=== PATIENT | male | born 1940 | race Two or more races ===

== ENCOUNTER 2024-08-08 14:32 | Outpatient (REF) | payer MEDICARE, OTHER, SELFPAY ==
[2024-08-08 16:28] LABS: Vitamin B12 705 pg/mL (200-900)
--- OUTSIDE RECORDS SUMMARY | 2024-08-08 18:11 | XMS_ITS | Encounter Summary ---
Author Organization [facility] [place] [address] Care Team Providers Care Assembly Line Supervisor Name Role Phone Mick Martins MD Primary Care Provider [phone] Reason for Visit * Reason Onset Date Comments Medicare Annual Wellness Visit Subsequent 2024 AWV DUE 2024 Encounter Details Date Type Department Care Team (Late st Contact Info) Description 07/27/2024 Telephone Foundry Supervisor - [facility] [address] [place] [phone] Maryann Alatorre MA Medicare Annual Wellness Visit Subsequent (AWV DUE 2024) Social History Tobacco Use Types Packs/Day Years Used Date Smoking Tobacco: Former Cigarettes Q uit: 06/13/1986 Smokeless Tobacco: Never Alcohol Use Standard Drinks/Week Comments Yes 0 (1 standard drink = 0.6 oz pur e alcohol) Sex and Gender Information Value Date Recorded Sex Assigned at Not on file Legal Sex Male 1:28 PM EST Gender Identity Not on file Sexual Orientation Not on file documented as of this encounter Progress Notes * Maryann Alatorre MA - 07/27/2024 2:18 PM EST Indonesian Microstrategy Architect JAYLEN for patient to contact the Quality Department to book an Annual Wellness Visit appt w/Sandra Wellness Nurse in 2024. Transfer to Maryann Alatorre @ [id number]. PT is on the March/2024 report. documented in this encounter Plan of Treatment Not on file documented as of this encounter Visit Diagnoses Not on filedocumented in this encounter Care Teams Assembly Line Supervisor Relationship Specialty Start Date End Date Mick Martins MD [address] [place] [address] PCP - General Internal Medicine 04/06/24 documented as of this encounter
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
== END 2024-08-08 14:33 | disposition home or self-care (01) ==
LOC: HO.LAB 14:32
PROVIDERS: PCP Internal Medicine; Visit Provider Psychiatry & Neurology Neurology
DX: G30.9 Alzheimer's disease, unspecified (principal)
CPT/HCPCS: 36415; 82607